=== PATIENT | male | born 1960 | race American Indian/Alaskan Native ===

== ENCOUNTER 2023-11-27 05:55 | Day surgery (SDC) | payer MEDICARE, OTHER ==
[2023-11-24 10:43] VITALS: BP 125/73
[~2023-11-27] VITALS: Ht 180.3 cm; Wt 92.7 kg
[~2023-11-27 05:55] MED LIST: ASPIRIN EC81 MG PO; BAYER CHEWABLE81 MG PO; BENZTROPINE MESY1 MG PO; BUPROPION XL300 MG PO; CARDURA4 MG PO; CETIRIZINE HCL10 MG PO; COQ-10100 MG PO; DICLOFENAC SODI75 MG PO; DIVALPROEX SOD500 MG PO; GEODON80 MG NG; LISINOPRIL20 MG PO; LOVASTATIN20 MG PO; MAGNESIUM250 M1 PO; MIDAZOLAM HCL 5 MG/5 ML VIAL IV PRN; MULTIVITAMINS1 EAC7 PO; NEURONTIN600 MG PO; OSTERA TABLET1 EACH PO; PEPCID40 MG PO; PRILOSEC20 MG PO; QUETIAPINE FUM300 M1 PO; SEROQUEL100 MG PO; STOOL SOFTENER100 MG PO; VITAMIN D-32000 UNIT PO; WELLBUTRIN XL300 MG PO; fentaNYL citrate 100 MCG/2 ML VIAL IV PRN
[2023-11-27 06:10] VITALS: BP 124/82
[2023-11-27] MEDS ORDERED: IBLOOD GLUCOSE TEST STRIP 1 EA TEST VI PRN (07:00)
[2023-11-27] MEDS ORDERED: LIDOCAINE HCL 1% 5 ML SDV INJ ONE (07:00)
[2023-11-27] MEDS ORDERED: LACTATED RINGER'S 1,000 ML IV SCH (07:00)
[2023-11-27] MEDS ORDERED: propofoL 200 MG/20 ML VIAL ONE (07:13)
[2023-11-27] MEDS ORDERED: LIDOCAINE HCL 2% 5 ML SDV ONE (07:13)
--- NOTE | 2023-11-27 07:17 | NUR ---
ROUNDS. PT IN CONFERENCE WITH MEDICAL STAFF. DID NOT INTERRUPT. PROVIDED SILENT PRAYER.
--- NOTE | 2023-11-27 07:49 | NUR ---
11/27/23 0749 Cielo Castano PATIENT ARRIVES IN PACU, RESTING WITH HIS EYES CLOSED. RESPIRATIONS ARE EVEN AND UNLABORED.
[2023-11-27 08:14] VITALS: BP 110/88
--- NOTE | 2023-11-27 09:02 | OR ---
[facility] [address] [place], [place] [address] Signed DATE OF OPERATION: 11/27/2023 SURGEON: Sonam Trujillo MD PREOPERATIVE DIAGNOSES: 1. Personal history of a tubular adenomatous polyp in 2014 at age 55. 2. Constipation. 3. Intermittent rectal bleeding. POSTOPERATIVE DIAGNOSIS: Extremely poor bowel prep. PROCEDURE: Colonoscopy without biopsy. ESTIMATED BLOOD LOSS: None. 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 He also has ataxia and tardive dyskinesia. He has to use marijuana on a nightly basis to help go to sleep. His brother comes with him as his caregiver. He had a colonoscopy in 2013 at the age of 55 [address] Byrd. Apparently, he had a tubular adenomatous polyp removed. He also complains of constipation with some intermittent rectal bleeding. The nurses tell me that his brother happens to be a nurse as well. There is no family history of colon cancer or polyps. In the office, I had given him a pamphlet on colonoscopy. We had reviewed the test together. There is risk including, but not limited to gas bloating, crampy abdominal pain, bleeding, perforation requiring surgery, and missed diagnosis. We also reviewed the need for monitored anesthesia care given his history, particularly his traumatic brain injury. In that regard, he did receive preoperative blood work and an EKG. We also reviewed the written instructions for the bowel prep line by line. He held his aspirin 3 days prior to the procedure. He understands an adult person has to take him home afterwards. He had expressed understanding and wished to proceed. DESCRIPTION OF PROCEDURE: Yasmin was taken into our endoscopy suite and placed in the left lateral decubitus position. He was given monitored anesthesia care with propofol infusion per our nurse ssas developer. A digital rectal exam was performed and this did not show any external Electronically Signed By: SONAM TRUJILLO MD 11/27/23 0902 PATIENT NAME: YASMIN RETANA OPERATIVE REPORT DATE OF : 64 REPORT #: [id number] PHYSICIAN: SONAM TRUJILLO MD PCP: JHONNY DUARTE MD REPORT IS CONFIDENTIAL AND NOT TO BE RELEASED WITHOUT AUTHORIZATION [facility] [address] [place], [place] [address] Signed hemorrhoids. He had good sphincter tone. There were no masses. There was liquid brown stool on the index finger. The adult colonoscope was then introduced. It took some time to suction out the liquid stool from his rectum. We advanced up through the sigmoid colon and left colon and we did our best to suction out the fluid as we went. The liquid particulate brown stool matter became progressively worse as we went up into the transverse colon. Finally, we simply could not advance the scope any further. The scope had to be withdrawn. We did not see any obvious pathology on the way out. We did not retroflex the scope. Yasmin tolerated the procedure quite well. RECOMMENDATIONS: Yasmin will follow up within the year to have his colonoscopy scheduled with a double bowel prep. Sonam Trujillo MD ALB/MODL /[id number] cc: MD Jhonny Harden MD Copies: SONAM TRUJILLO MD, ROBERT D DMD ~ Electronically Signed By: SONAM TRUJILLO MD 11/27/23 0902 PATIENT NAME: YASMIN RETANA OPERATIVE REPORT DATE OF : 64 REPORT #: [id number] PHYSICIAN: SONAM TRUJILLO MD PCP: JHONNY DUARTE MD REPORT IS CONFIDENTIAL AND NOT TO BE RELEASED WITHOUT AUTHORIZATION
== END 2023-11-27 08:20 | disposition home or self-care (01) ==
LOC: DS 05:55
PROVIDERS: ATTEND Colon & Rectal Surgery
PROC: 0DJD8ZZ Inspection of Lower Intestinal Tract, Via Natural or Artificial Opening Endoscopic (ICD-10-PCS; principal; 2023-11-27 07:30)
DX: Z12.11 Encounter for screening for malignant neoplasm of colon (principal); Z53.8 Procedure and treatment not carried out for other reasons; K62.5 Hemorrhage of anus and rectum; K59.00 Constipation, unspecified; Z86.010 Personal history of colon polyps; I10 Essential (primary) hypertension; F12.10 Cannabis abuse, uncomplicated; K59.09 Other constipation; N40.0 Benign prostatic hyperplasia without lower urinary tract symptoms; K21.9 Gastro-esophageal reflux disease without esophagitis; F41.9 Anxiety disorder, unspecified; F25.9 Schizoaffective disorder, unspecified; Z79.899 Other long term (current) drug therapy
CPT/HCPCS: 00811; J2001; J2704; J7121